=== PATIENT | male | born 2000 | race Caucasian/White ===

== ENCOUNTER 2020-10-11 08:59 | Emergency (ER) | payer OTHER, MEDICAID, SELFPAY ==
--- NOTE | 2020-10-11 09:03 | ED.HA ---
HPI - Headache General Chief Complaint: Headache Stated Complaint: migrane Time Seen by Provider: 10/11/20 09:03 Source: patient and RN notes reviewed History of Present Illness HPI Narrative: Patient is a 19-year-old male who presents the urgent care with complaints of a migraine for the last 2 days. Patient states he went to the emergency room 2 days ago for nausea, vomiting and abdominal pain. Patient states that those symptoms have resolved and he was able to get fluids and lab work done in the ER 2 days ago. Patient believes that the nausea and vomiting has caused a migraine. Patient does have a history of migraines but has not had one in some time. Patient states that he suffered terribly when he was a child. Does not take any controller medications for migraines. States that he has taken extra strength Tylenol and ibuprofen for the migraine without much relief. Patient states he has not had any ibuprofen since last night. States that he is currently having sensitivity to light and sound. Denies of any extreme fatigue, weakness or dizziness. Denies of any changes in vision. No other acute complaints. No acute distress noted. Patient aware of the plan of care. Some parts of this dictation were generated by voice recognition software and may contain typographical and/or grammatical inaccuracies. Related Data Home Medications Medication Instructions Recorded Confirmed No Home Medications 10/11/20 10/11/20 Allergies Allergy/AdvReac Type Severity Reaction Status Date / Time No Known Allergies Allergy Verified 10/11/20 09:15 Review of Systems Review of Systems: Narrative: CONSTITUTIONAL: Denies fever, chills, or sweats. Reports of sensitivity to light and sound EYES: Denies visual changes, redness, or discharge. ENT: Denies rhinorrhea, congestion, sore throat, or otalgia. CARDIOVASCULAR: Denies chest pain, palpitations, or edema. RESPIRATORY: Denies cough or dyspnea. GASTROINTESTINAL: Denies abdominal pain, nausea, vomiting, or diarrhea. GENITOURINARY: Denies dysuria or hematuria. SKIN: Denies rash or itching. MUSCULOSKELETAL: Denies back pain, joint pain, or myalgia. NEUROLOGIC: Reports of migraine headache All other systems reviewed are negative, except as documented in HPI. PMFSH Comments At the time of my signature, I reviewed and agree with the nursing past medical, surgical, social, and family history. There is no relevant family history pertinent to the patient complaint. Exam Narrative: Exam Narrative: GENERAL: This is a well-nourished, well-developed patient, in no apparent distress. HEAD: normocephalic, atraumatic. EYES: PERRL. Sclera clear/white. Vision is grossly intact. EARS: External ears normal NOSE: External nose normal with no obvious nasal discharge, nares without redness, no rhinorrhea. THROAT: Mucous membranes moist NECK: Neck supple CARDIOVASCULAR: Regular rate and rhythm without murmurs, gallops, or rubs. RESPIRATORY: Clear to auscultation. Breath sounds equal bilaterally. No wheezes, rales, or rhonchi. SKIN: warm, intact with no suspicious lesions or rash, good texture and turgor. NEURO: awake, alert, and oriented to person, place and time. There were no obvious focal neurologic abnormalities. EXTREMITIES: No clubbing, cyanosis, or edema. Course Vital Signs Vital signs: Vital Signs Temperature 97.1 F L 10/11/20 09:06 Pulse Rate 93 10/11/20 09:06 Respiratory Rate 16 10/11/20 09:06 Blood Pressure 120/75 10/11/20 09:06 Pulse Oximetry 99 10/11/20 09:06 Temperature 97.1 F L 10/11/20 09:16 Pulse Rate 93 10/11/20 09:16 Respiratory Rate 16 10/11/20 09:16 Blood Pressure 120/75 10/11/20 09:16 Pulse Oximetry 99 10/11/20 09:16 Reviewed MDM - Headache MDM Narrative Medical decision making narrative: Advised the patient to take it easy for the next day or 2. Increase your water intake. Avoid ibuprofen for at least the next 6 hours due to your large do
[2020-10-11 09:06] VITALS: BP 120/75; PULSE 93; RESP 16; TEMP 36.2; O2SAT 99
[2020-10-11 09:16] VITALS: BP 120/75; PULSE 93; RESP 16; TEMP 36.2; O2SAT 99
[2020-10-11] MEDS: diphenhydrAMINE HCl CAP 25 MG CAPSULE PO (09:21)
[2020-10-11] MEDS: ONDANSETRON HCL ODT 4 MG TABLET PO (09:21)
[2020-10-11] MEDS: KETOROLAC (*BKC) 60 MG/2 ML VIAL IM (09:23)
== END 2020-10-11 09:55 | disposition home or self-care (01) ==
PROVIDERS: Emergency Provider Nurse Practitioner Family; PCP Internal Medicine Infectious Disease
DX: G43.909 Migraine, unspecified, not intractable, without status migrainosus (principal)
CPT/HCPCS: 96372; 99213; A9270; G0463; J1885